=== PATIENT | female | born 1950 | race Hispanic/Latino ===

== ENCOUNTER 2017-04-13 10:33 | Outpatient (CLI) | payer MEDICARE, OTHER ==
--- NOTE | 2017-04-13 14:56 | Mammography Report ---
BILATERAL DIGITAL SCREENING MAMMOGRAM with CAD: 04/13/17 10:33:00 CLINICAL: Routine screening. COMPARISON:12/09/11 FINDINGS: The breasts are almost entirely fatty.Bilateral scattered benign calcifications. No mass, architectural distortion or suspicious calcifications. IMPRESSION: No mammographic evidence of malignancy. BI-RADS CATEGORY: 2 -- Benign RECOMMENDATION: Routine mammographic screening in one year. COMMENT: Patient follow-up letters are generated by our [employer] application.
== END 2017-04-13 10:34 | disposition home or self-care (01) ==
LOC: MAMMO 10:33
DX: Z12.31 Encounter for screening mammogram for malignant neoplasm of breast (principal)
CPT/HCPCS: 77067